=== PATIENT | male | born 1965 | race Two or more races ===

== ENCOUNTER 2018-12-19 11:12 | Emergency (ER) | payer MEDICAID ==
[2018-12-19] MEDS ORDERED: IBUPROFEN 600 MG TABLET PO ONE (12:24)
--- NOTE | 2018-12-19 13:27 | Emergency Department Record ---
History of Present Illness - General Chief complaint: Extremity Problem Stated complaint: KNEE INJURY Time Seen by Provider: 12/19/18 12:20 Source: Patient Mode of Arrival: Ambulatory - History of Present Illness Initial comments: pt was lifting and twisting when he injured his knee 2 days ago. he has difficulty bearing weight and the knee feels like it is going to give out on him MD Complaint: Joint pain, Joint swelling Onset/Timin -: Days(s) Location: Right, Knee History of Same: No Radiation: Proximal, Distal Severity scale (1-10): 9 Quality: Aching Worsens with: Walking, Weight bearing - Related Data Home Medications Medication Instructions Recorded Confirmed Last Taken Enalapril Maleate [Vasotec] 10 mg PO DAILY 12/19/18 12/19/18 1 Day Ago ~12/18/18 Previous Rx's Medication Instructions Recorded Ibuprofen [Motrin 600Mg] 600 mg PO Q8H #20 tablet 12/19/18 Allergies Allergy/AdvReac Type Severity Reaction Status Date / Time No Known Drug Allergies Allergy Verified 12/19/18 11:29 Travel Screening - Travel/Exposure Within Last 30 Days Have you traveled within the last 30 days?: No - Travel/Exposure Within Last Year Have you traveled outside the [place] in the last year?: No - Additonal Travel Details Have you been exposed to anyone with a communicable illness?: No - Travel Symptoms Symptom Screening: None Review of Systems Reviewed: No additional complaints except as noted below Constitutional: Reports: As per HPI. Denies: Chills, Fever, Malaise, Night sweats, Weakness, Weight change Eyes: Reports: As per HPI. Denies: Eye discharge, Eye pain, Photophobia, Vision change ENT: Reports: As per HPI. Denies: Congestion, Dental pain, Ear pain, Epistaxis, Hearing loss, Throat pain Respiratory: Reports: As per HPI. Denies: Cough, Dyspnea, Hemoptysis, Stridor, Wheezes Cardiovascular: Reports: As per HPI. Denies: Arrhythmia, Chest pain, Dyspnea on exertion, Edema, Murmurs, Orthopnea, Palpitations, Paroxysmal nocturnal dyspnea, Rheumatic Fever, Syncope Endocrine: Reports: As per HPI. Denies: Fatigue, Heat or cold intolerance, Polydipsia, Polyuria Gastrointestinal: Reports: As per HPI. Denies: Abdominal pain, Constipation, Diarrhea, Hematemesis, Hematochezia, Melena, Nausea, Vomiting Genitourinary: Reports: As per HPI. Denies: Dysuria, Frequency, Hematuria, Incontinence, Retention, Testicular pain, Testicular mass, Urgency Musculoskeletal: Reports: As per HPI. Denies: Arthralgia, Back pain, Gout, Joint swelling, Myalgia, Neck pain Skin: Reports: As per HPI. Denies: Bruising, Change in color, Change in hair/nails, Lesions, Pruritus, Rash Neurological: Reports: As per HPI. Denies: Abnormal gait, Confusion, Headache, Numbness, Paresthesias, Seizure, Tingling, Tremors, Vertigo, Weakness Psychiatric: Reports: As per HPI. Denies: Anxiety, Auditory hallucinations, Depression, Homicidal thoughts, Suicidal thoughts, Visual hallucinations Hematological/Lymphatic: Reports: As per HPI. Denies: Anemia, Blood Clots, Easy bleeding, Easy bruising, Swollen glands Past Medical History - SOCIAL HISTORY Smoking Status: Never smoker Alcohol Use: Rare, Occasional Drug Use: None - RESPIRATORY Hx Respiratory Disorders: No - CARDIOVASCULAR Hx Cardio Disorders: Yes Hx Hypertension: Yes - NEURO Hx Neuro Disorders: No - GI Hx GI Disorders: No - Hx Genitourinary Disorders: No - ENDOCRINE Hx Endocrine Disorders: No - MUSCULOSKELETAL Hx Musculoskeletal Disorders: No - PSYCH Hx Psych Problems: No - HEMATOLOGY/ONCOLOGY Hx Hematology/Oncology Disorders: No Family Medical History Any Significant Family History?: Yes Physical Exam - General General Appearance: Alert, Oriented x3, Cooperative, Mild distress - Head Head exam: Normal inspection - Eye Eye exam: Normal appearance, PERRL, EOMI Pupils: Normal accommodation - ENT ENT exam: Normal exam, Mucous membranes moist, Normal external ear exam, Normal orophraynx Ear exam: Normal external inspection. negative: External canal tenderness Nasal Exam: Normal inspection. negative: Discharge, Sinus tenderness Mouth exam: Normal external inspection, Tongue normal Teeth exam: Normal inspection. negative: Dental caries Throat exam: Normal inspection. negative: Tonsillar erythema, Tonsillar exudate - Neck Neck exam: Normal inspection, Full ROM. negative: Tenderness - Respiratory Respiratory exam: Normal lung sounds bilaterally. negative: Respiratory distress - Cardiovascular Cardiovascular Exam: Regular rate, Normal rhythm, Normal heart sounds - GI/Abdominal GI/Abdominal exam: Soft, Normal bowel sounds. negative: Tenderness - Rectal Rectal exam: Deferred - exam: Deferred - Extremities Extremities exam: Joint swelling, Normal capillary refill, Tenderness. negative: Full ROM - Back Back exam: Reports: Normal inspection, Full ROM. Denies: Muscle spasm, Rash noted, Tenderness - Neurological Neurological exam: Alert, CN II-XII intact, Normal gait, Oriented X3 - Psychiatric Psychiatric exam: Normal affect, Normal mood - Skin Skin exam: Dry, Intact, Normal color, Warm Course Vital Signs 12/19/18 11:21 Temperature 98.2 F Pulse Rate 65 Respiratory 18 Rate Blood Pressure 166/105 Pulse Ox 97 Disposition Disposition: Discharge Clinical Impression: ACL (anterior cruciate ligament) tear Qualifiers: Encounter type: initial encounter Laterality: right Qualified Code(s): S83.511A - Sprain of anterior cruciate ligament of right knee, initial encounter Disposition: Home, Self-Care Condition: (1) Good Instructions: ACL Injury (ED), Knee Immobilizer (ED) Additional Instructions: follow up with orthopedic doctor. return sooner if worse. ice and elevate. Prescriptions: Ibuprofen [Motrin 600Mg] 600 mg PO Q8H #20 tablet Referrals: Sriram Gimenez [DOCTOR OF OSTEOPATH] - [facility] Special[facility] [Provider Group] Quality - Quality Measures Quality Measures: N/A - Blood Pressure Screening Does Patient Have Any of the Following: Active Dx of HTN Blood Pressure Classification: Hypertensive Reading Systolic Measurement: 166 Diastolic Measurement: 105 Screening for High Blood Pressure: Patient Exclusion, Hx of HTN [[id number]]
--- NOTE | 2018-12-20 15:07 | RADIOLOGY REPORT ---
EXAMINATION: Right knee 4 views. CLINICAL HISTORY: Medial knee pain one day post twisting injury. TECHNIQUE: Four views of the right knee. COMPARISON: None. ENCOUNTER: Initial. FINDINGS: There is normal bone mineralization. No fracture, dislocation, or destructive bone lesion is seen. Mild tricompartmental osteoarthritis. No joint effusion. There is mild enthesopathic spurring at the quadriceps tendon insertion on the upper pole of the patella. No suspicious soft tissue abnormality. IMPRESSION: 1. No acute fracture nor dislocation. 2. Mild tricompartmental osteoarthritis. MTDD
== END 2018-12-19 13:46 | disposition home or self-care (01) ==
LOC: ER 11:12
DX: S83.511A Sprain of anterior cruciate ligament of right knee, initial encounter (principal); X50.0XXA Overexertion from strenuous movement or load, initial encounter; I10 Essential (primary) hypertension
CPT/HCPCS: 99283